=== PATIENT | female | born 1985 | race Caucasian/White ===

== ENCOUNTER 2020-09-02 20:27 | Observation (INO) ==
[2020-09-02] MEDS ORDERED: Ringers Solution, Lactated 1,000 ML IVC ONE (21:37)
[2020-09-02] MEDS ORDERED: Ringers Solution, Lactated 1,000 ML ONE (21:41)
[2020-09-02 22:26] LABS: Bacteria,Urine Few per hpf (None-Few); Bilirubin,Urine Negative (Negative); Blood,Urine Negative (Negative); Clarity,Urine Clear (Clear); Color,Urine Yellow (Yellow); Glucose,Urine (UA) Normal (Normal); Ketones,Urine Trace mg/dL (Negative); Leukocyte Esterase,Urine Negative (Negative); Mucus,Urine Moderate per lpf (None-Few); Nitrite,Urine Negative (Negative); Protein,Urine 100 mg/dL (Neg-Trace); RBC,Urine 0-3 per hpf (0-3); Specific Gravity,Urine > 1.030 (1.010-1.025); Squamous Epithelial Cell,Urine Moderate per hpf (None-Few); WBC,Urine 0-3 per hpf (0-3)
== END 2020-09-02 22:45 | disposition home or self-care (01) ==
LOC: 1NENULAB
PROVIDERS: ADMIT Obstetrics & Gynecology; ATTEND Obstetrics & Gynecology

== ENCOUNTER 2020-09-07 05:31 | Inpatient (IN) ==
[2020-09-07] MEDS ORDERED: Azithromycin 500 MG in 0.9 % Sodium Chloride 250 ML IVPB ONE (05:58)
[2020-09-07] MEDS ORDERED: Naloxone 0.4 MG/ML INJ IVP PRN ×2 (05:58→08:34)
[2020-09-07] MEDS ORDERED: Famotidine 20 MG/2 ML VIAL IVP PRN (05:58)
[2020-09-07] MEDS ORDERED: Metoclopramide 10 MG/2 ML VIAL IVP PRN ×2 (05:58→21:00)
[2020-09-07] MEDS ORDERED: Ringers Solution, Lactated 1,000 ML IVC ONE (05:59)
[2020-09-07] MEDS ORDERED: Ondansetron 4 MG/2 ML VIAL IVP PRN ×3 (06:00→21:00)
[2020-09-07] MEDS ORDERED: Ringers Solution, Lactated 1,000 ML IVC SCH (06:00)
[2020-09-07 06:31] LABS: Basophils # 0.1 K/mcL (0.0-0.2); Basophils % 0.5 %; Eosinophils # 0.2 K/mcL (0.0-0.6); Eosinophils % 1.6 %; Hematocrit 33.2 % (35.3-44.9); Hemoglobin 10.3 g/dL (11.5-15.4); Immature Granulocytes % 0.8 % (0-4); Lymphocytes # 2.8 K/mcL (0.6-4.6); Lymphocytes % 19.7 %; Mean Corpuscular Hemoglobin 26.7 pg (28.0-33.3); Mean Platelet Volume 10.2 fL (9.4-12.4); Neutrophils # 10.1 K/mcL (1.6-8.9); Platelet Count 480 K/mcL (140-400); Red Blood Count 3.86 M/mcL (3.82-4.97); Red Cell Distribution Width 14.3 % (11.5-14.5); Segmented Neutrophils % 70.4 %; White Blood Count 14.4 K/mcL (4.3-11.1)
[2020-09-07 06:41] LABS: Amphetamine Screen,Urine Negative ng/mL (Cutoff=1000); Barbiturate Screen,Urine Negative ng/mL (Cutoff=200); Benzodiazepines Screen,Urine Negative ng/mL (Cutoff=200); Cannabinoid Screen,Urine Positive ng/mL (Cutoff = 50); Cocaine Screen,Urine Negative ng/mL (Cutoff= 300); Opiate Screen,Urine Negative ng/mL (Cutoff=300); Phencyclidine Screen,Urine Negative ng/mL (Cutoff=25)
[2020-09-07] MEDS ORDERED: Oxytocin 20 units/ LR 1000 mL 20 UNIT/1,000 ML BAG IVC ONE ×2 (07:24→09:20)
[2020-09-07] MEDS ORDERED: *HR* OxyCODONE Immed Rel 5 MG TABLET PO PRN (08:34)
[2020-09-07] MEDS ORDERED: *HR* FentaNYL (PF) 100 MCG/2 ML VIAL IVP PRN (08:34)
[2020-09-07] MEDS ORDERED: *HR* Nalbuphine 10 MG/ML AMPUL IV PRN (10:04)
[2020-09-07] MEDS ORDERED: Simethicone 80 MG TAB.CHEW PO PRN (21:00)
[2020-09-07] MEDS ORDERED: Measles/Mumps/Rubella Vacc 0.5 ML VIAL SQ ONE (21:00)
[2020-09-07] MEDS ORDERED: Oxytocin 20 units/ LR 1000 mL 20 UNIT/1,000 ML BAG IVC SCH (21:00)
[2020-09-07] MEDS ORDERED: Acetaminophen 325 MG TABLET PO PRN (21:00)
[2020-09-07] MEDS ORDERED: Sennosides 8.6 MG TABLET PO PRN (21:00)
[2020-09-07] MEDS ORDERED: *HR* OxyCODONE/APAP 5/325 TABLET PO PRN (21:00)
[2020-09-07] MEDS: Ibuprofen 600 MG TABLET PO PRN (21:17)
[2020-09-08] MEDS: Ibuprofen 600 MG TABLET PO PRN ×2 (09:27→18:51)
[2020-09-08] MEDS: Prenatal Vit/FA 1 EACH TABLET PO SCH (09:28)
[2020-09-09] MEDS: Ibuprofen 600 MG TABLET PO PRN (08:08)
[2020-09-09] MEDS: Prenatal Vit/FA 1 EACH TABLET PO SCH (08:08)
[2020-09-09 08:12] VITALS: BP 106/71
== END 2020-09-09 11:50 | disposition home or self-care (01) | DRG 540 ==
LOC: 1NENULAB 05:31 → 1NENUOBS 11:33
PROVIDERS: ADMIT Obstetrics & Gynecology; ATTEND Obstetrics & Gynecology